=== PATIENT | male | born 1985 ===

== ENCOUNTER 2018-12-21 12:05 | Emergency (ER) | payer OTHER ==
--- NOTE | 2018-12-21 13:29 | ED ---
Throat Pain/Nasal Congestion - HPI Summary HPI Summary: 33 yr old male with the complaint of sore throat, runny nose. No coughing. No fever or chills. He has been ill over this weekend. Clear runny nose. He states his throat bothers him the most, moderate intensity. No drooling, no stridor. 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 - History of Current Complaint Chief Complaint: UCRespiratory Time Seen by Provider: 12/21/18 13:18 - Allergies/Home Medications Allergies/Adverse Reactions: Allergies Allergy/AdvReac Type Severity Reaction Status Date / Time No Known Allergies Allergy Verified 12/21/18 12:21 PMH/Surg Hx/FS Hx/Imm Hx Infectious Disease History: No Infectious Disease History: Reports: Traveled Outside the [place] in Last 30 Days - [facility] - Family History Known Family History: Positive: None - Social History Alcohol Use: Rare Substance Use Type: Reports: None Smoking Status (MU): Never Smoked Tobacco Review of Systems Constitutional: Negative Positive: Sore Throat, Nasal Discharge All Other Systems Reviewed And Are Negative: Yes Physical Exam Triage Information Reviewed: Yes Vital Signs On Initial Exam: Initial Vitals Temp Pulse Resp BP Pulse Ox 98.6 F 83 18 102/65 98 12/21/18 12:15 12/21/18 12:15 12/21/18 12:15 12/21/18 12:15 12/21/18 12:15 Vital Signs Reviewed: Yes Appearance: Positive: Well-Appearing, No Pain Distress Skin: Positive: Warm, Skin Color Reflects Adequate Perfusion Head/Face: Positive: Normal Head/Face Inspection Eyes: Positive: EOMI ENT: Positive: Pharyngeal erythema, Nasal congestion, TM red - left anterior hald of TM is red Neck: Positive: Supple Respiratory/Lung Sounds: Positive: Clear to Auscultation, Breath Sounds Present Cardiovascular: Positive: RRR. Negative: Murmur Abdomen Description: Negative: Distended Musculoskeletal: Positive: Strength/ROM Intact Neurological: Positive: Sensory/Motor Intact, Alert, Oriented to Person Place, Time, CN Intact II-III, Normal Gait, Speech Normal Psychiatric: Positive: Normal Diagnostics - Vital Signs Vital Signs Temp Pulse Resp BP Pulse Ox 12/21/18 12:15 98.6 F 83 18 102/65 98 - Laboratory Lab Results: Lab Results 12/21/18 Range/Units 13:07 Group A Strep Rapid Negative (Negative) Lab Statement: Any lab studies that have been ordered have been reviewed, and results considered in the medical decision making process. EENT Course/Dx - Course Course Of Treatment: 33 yr old with Male with left OM, and URI. Rx with zithromax. - Diagnoses Provider Diagnoses: Otitis media, left, Upper respiratory infection Discharge - Sign-Out/Discharge Documenting (check all that apply): Patient Departure All imaging exams completed and their final reports reviewed: No Studies - Discharge Plan Condition: Good Disposition: HOME Prescriptions: Azithromycin TAB* [Zithromax TAB (Z-TRES) 250 mg #6 tabs] 2 tab PO .TODAY, THEN 1 DAILY #1 tres Ibuprofen TAB* [Motrin TAB* 600 MG] 600 mg PO Q8H PRN #20 tab PRN Reason: Pain Patient Education Materials: Ear Infection (ED), Upper Respiratory Infection ( ED) Referrals: No Primary Care Phys,NOPCP [Primary Care Provider] - [facility] [Outside] - 5 Days - Billing Disposition and Condition Condition: GOOD Disposition: Home
== END 2018-12-21 13:34 | disposition home or self-care (01) ==
LOC: UCEAST 12:05
DX: H66.92 Otitis media, unspecified, left ear (principal); J06.9 Acute upper respiratory infection, unspecified
CPT/HCPCS: 87651; 99202; G0463